=== PATIENT | female | born 1985 | race Caucasian/White ===

== ENCOUNTER → 2017-01-17 | Outpatient (CLI) | payer SELFPAY | LOC: FIMAGING 15:43 | PROVIDERS: ATTEND Advanced Practice Midwife | DX: M79.661 Pain in right lower leg (principal) ==

== ENCOUNTER 2017-12-17 11:02 | Observation (INO) | payer OTHER ==
--- NOTE | 2017-12-16 17:18 | PDGENHP ---
"History and Physical History and Physical: Assessment and Plan: 1. Lateral cystocele Meka has symptomatic stage III pelvic organ prolapse which is predominantly her anterior compartment, as well as a dilated hiatus with a thin, hypermobile perineal body. We again reviewed all conservative and surgical options. She is anxious to return to exercise and other activities without symptoms of her prolapse. She does not wish to use a pessary for the next 60 years potentially. As result she wishes to pursue surgical repair. Given the quality of her tissues as well as her prolapse in all 3 compartments I feel a supracervical hysterectomy, sacral colpopexy, and perineorrhaphy would be the most appropriate repair which would provide a good anatomic result as well as long-term durability. I think she also would benefit from a mid urethral sling procedure. She is going to discuss this with her and will call back to schedule her procedure. 2. Rectocele 3. Stress incontinence Subjective: Patient ID: Meka Cage is a 32 y.o. female who presents to [facility] for prolapse. HPI Meka Cage presents for a preoperative visit. She is scheduled for a robotic assisted hysterectomy, sacrocolpopexy, and possible transobturator sling. The risks, benefits, and alternatives were presented and informed consent was obtained. 40 minutes of this 40 minute appointment was spent counceling, reviewing the procedure in detail, and discussing the preoperative and postoperative instructions. Below is a copy of our prior visit note. Meka is a 32-year-old para 4 woman using vasectomy now for contraception. I last saw her in June 2016 for prolapse. At that time she and her were considering 1 more . She conceived soon after that last visit and had a vaginal delivery in February of this year. Her prolapse became more symptomatic during . [facility] who fitted her with a ring pessary at 20 weeks of . Since her last delivery 5 months ago she continues to remain symptomatic from her prolapse. And her are done with childbearing. She has been using her ring pessary since delivery but finds it uncomfortable and it does not support her prolapse very well. She presents to discuss options. Below is a copy of our visit note from last year. Meka is a new patient. She attended a lecture I gave on pelvic organ prolapse. She is a 31-year-old, para 3 woman. All 3 of her boys were born vaginally. She developed a vaginal bulge during the first trimester of her third . It seemed to improve during the second trimester, but again returned . Now she feels a bulge all of the time. She has undergone pelvic physical therapy with Alysia at [facility]. She finds her symptoms are better in the morning, but they return by around lunchtime. She has urinary frequency and urgency, but no urgency incontinence. She finds that if she squats after urination she can empty more volume. She has no problems with bowel movements. She has rare stress urinary incontinence. She has no problems or pain with intercourse. She is a very active woman. She has been afraid to return to jogging because the bulge is so uncomfortable. She does not want it to worsen. Her largest child weighed 7-1/2 pounds. She was told she did not tear. All 3 were born with a cake winder. She is a [id number] mother and lives in [place]. She and her would like to have one more child. She is hoping to have a girl. PastMedicalHistory No past medical history on file. PastSurgicalHistory Past Surgical History: Procedure Laterality Date WISDOM TOOTH EXTRACTION 2002 CURRENT MEDICATIONS: Current Outpatient Prescriptions Medication Sig pantoprazole (PROTONIX) 40 mg EC tablet Take 40 mg by mouth daily. No current facility-administered medications for this visit. ALLERGIES: Adhesive tape-silicones I have reviewed, verified and agree with the past medical, surgical, , family, social and ROS history as documented by the RN today. Review of Systems Objective: Vital Signs: BP 100/62 | Pulse 83 | Temp 36.1 C (96.9 F) (Temporal Artery) | Resp 16 | Ht 1.524 m (5') | Wt 49 kg (108 lb) | SpO2 99% | BMI 21.09 kg/m Physical Exam Gen: This is an alert, well developed woman in no distress. Neuro: She moves all extremities. Psych: She is appropriate, oriented, with normal affect. Neck: No thyroid enlargement, adenopathy, or tenderness. Lungs: Clear to ascultation, no wheezes or rales. Heart: Regular rate and rhythm without obvious murmurs. Abdomen: Soft, non-tender, without guarding, rebound, or masses. Extremities: No edema or cyanosis. Pelvic: Normal external genitalia. Cervix without lesions or discharge. Adnexa non-tender without enlargement. The introitus is gaping, especially posteriorly. She has a scar along the perineal body and posterior vagina from one of her prior deliveries. She has a third-degree cystocele with which is a lateral defect. She has a second degree low rectocele, which is more pronounced given the posterior dilation of the hiatus. The uterus descends to -2. The uterus is very small, mobile, nontender. The perineal body is thin and hypermobile. Anal sphincter tone is normal. The urethra is mobile with leaking during strong coughing. TIME/COMMUNICATION: I personally spent a total of 30 minutes. Of that 20 minutes was counseling/ coordination of patient's care. See my note above for details. Amauri Carmen MD Board Certified Female Pelvic Medicine and Reconstructive Surgery Director of Minimally Invasive Gynecologic Surgery, [facility] Minimally Invasive Gynecologic Surgery Designee"
[2017-12-17] MEDS ORDERED: PHENAZOPYRIDINE HCL 200 MG TAB PO ONE (11:33)
[2017-12-17] MEDS ORDERED: ceFAZolin 2 GM/SWFI 2 GM/20 ML SYR IVP ONE (11:33)
[2017-12-17] MEDS ORDERED: GABAPENTIN 400 MG CAP PO ONE (11:33)
[2017-12-17] MEDS ORDERED: ACETAMINOPHEN 500 MG TAB PO ONE (11:33)
[2017-12-17] MEDS ORDERED: LIDOCAINE 1% 2 ML INJ ID PRN (11:48)
[2017-12-17] MEDS ORDERED: LR 1,000 ML IV ONE (11:48)
[2017-12-17] MEDS ORDERED: BUPIVACAINE/EPI 0.5% 30 ML SDV ONE (12:40)
--- NOTE | 2017-12-17 12:58 | PDHPUP ---
History & Physical Update H&P update statement: This history and physical update is based on an assessment of the patient which was completed after admission or registration (within 24 hours), but prior to the surgery/procedure. H&P update: H&P reviewed & patient examined, no change in patient's condition since H&P completed
[2017-12-17] MEDS ORDERED: MIDAZOLAM 2 MG/2 ML VIAL IVP ONE (13:03)
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
[2017-12-17] MEDS ORDERED: MIDAZOLAM 2 MG/2 ML VIAL ONE (13:04)
[2017-12-17] MEDS ORDERED: DEXAMETHASONE 4 MG/ML VIAL ONE (13:07)
[2017-12-17] MEDS ORDERED: KETOROLAC 30 MG/1 ML SDV ONE ×2 (13:07→16:54)
[2017-12-17] MEDS ORDERED: SUGAMMADEX SODIUM 200 MG/2 ML VIAL IVP ONE (13:07)
[2017-12-17] MEDS ORDERED: fentaNYL 250 MCG/5 ML INJ ONE (13:07)
[2017-12-17] MEDS ORDERED: ONDANSETRON 4 MG/2 ML VIAL ONE (13:07)
[2017-12-17] MEDS ORDERED: ROCURONIUM 50 MG/5 ML VIAL ONE ×2 (13:07→13:08)
[2017-12-17] MEDS ORDERED: PROPOFOL 200 MG/20 ML VIAL ONE (13:07)
[2017-12-17] MEDS ORDERED: LIDOCAINE 2% 5 ML SDV ONE (13:09)
[2017-12-17] MEDS ORDERED: fentaNYL 100 MCG/2 ML INJ ONE ×2 (14:07→15:58)
[2017-12-17] MEDS ORDERED: ALBUTEROL 3 ML DEYVIAL IH PRN (14:54)
[2017-12-17] MEDS ORDERED: OXYCODONE/APAP 5/325 TAB PO PRN (14:54)
[2017-12-17] MEDS ORDERED: METOCLOPRAMIDE 10 MG/2 ML VIAL IVP PRN (14:54)
[2017-12-17] MEDS ORDERED: PROMETHAZINE HCL 25 MG/ML INJ IVP PRN (14:54)
[2017-12-17] MEDS ORDERED: NALOXONE HCL 0.4 MG/ML INJ IVP PRN (14:54)
[2017-12-17] MEDS ORDERED: ONDANSETRON 4 MG/2 ML VIAL IVP PRN ×2 (14:54→15:52)
[2017-12-17] MEDS ORDERED: LR 500 ML IV PRN (14:54)
[2017-12-17] MEDS ORDERED: ACETAMINOPHEN 500 MG TAB PO PRN (14:54)
--- NOTE | 2017-12-17 14:54 | POSTANESTH ---
Post Anesthetic Evaluation Cardiovascular Status: Normal, Stable Respiratory Status: Normal, Stable Level of Consciousness/Mental Status: Can Participate in Eval Pain Control: Adequate, Prn Tx Ordered Nausea/Vomiting Control: Adequate, Prn Tx Ordered Complications Possibly Related to Anesthesia: None Noted
--- NOTE | 2017-12-17 15:56 | POSTOPPROG ---
Post Op Note Date of Operation: 12/17/17 Surgeon: Amauri Carmen Supply Officer: Mee cano Anesthesia: GET(General Endotracheal) Pre-op Diagnosis: uterovaginal prolapse Post-op Diagnosis: same Procedure: robotic hyst, sacrocolpopexy, retropubic sling, cysto Findings: uireters function at end of case Inf/Abcess present in the surg proc area at time of surgery?: No EBL: Minimal Complications: None Specimen(s): uterus and tubes
[2017-12-17] MEDS ORDERED: HYDROmorphONE/DILAUDID 1 MG/ML INJ ONE (15:58)
[2017-12-17] MEDS: fentaNYL 100 MCG/2 ML INJ IVP PRN ×2 (16:00→16:11)
[2017-12-17] MEDS ORDERED: LR 1,000 ML IV SCH (16:00)
[2017-12-17] MEDS: HYDROmorphONE/DILAUDID 1 MG/ML INJ IVP PRN ×2 (16:03→16:13)
[2017-12-17] MEDS ORDERED: OPIUM/BELLADONNA ALKALO SUPP PR ONE (16:24)
[2017-12-17] MEDS: OPIUM/BELLADONNA ALKALO SUPP PR PRN ×2 (16:25→23:33)
[2017-12-17] MEDS: KETOROLAC 30 MG/1 ML SDV IVP SCH ×2 (16:55→22:35)
[2017-12-17] MEDS ORDERED: DIAZEPAM 10 MG/2 ML SYR ONE (17:29)
[2017-12-17] MEDS ORDERED: DIAZEPAM 10 MG/2 ML SYR IVP ONE (17:30)
[2017-12-18] MEDS: OXYCODONE/APAP 5/325 TAB PO PRN ×4 (04:58→17:39)
--- NOTE | 2017-12-18 05:00 | GOP ---
[f rep st] OPERATIVE REPORT DATE OF OPERATION: SURGEON: Amauri Carmen MD ENGINEER SOILS: Mee Hunt CFA. ANESTHESIA: General. PREOPERATIVE DIAGNOSIS: 1. Symptomatic uterovaginal prolapse. 2. Stress urinary incontinence. POSTOPERATIVE DIAGNOSIS: 1. Symptomatic uterovaginal prolapse. 2. Stress urinary incontinence. PROCEDURE PERFORMED: 1. Robotic-assisted laparoscopic hysterectomy, bilateral salpingectomy. 2. Sacral cervicopexy with mesh. 3. Repair of cystocele and rectocele. 4. Retropubic sling. 5. Perineoplasty. 6. Cystoscopy. FINDINGS: SPECIMENS: Uterus, bilateral tubes. ESTIMATED BLOOD LOSS: Scant. DESCRIPTION OF PROCEDURE: The patient was taken to the operating room where she was identified. Gen eral anesthesia was administered and found to be adequate. She was placed in the lithotomy position and prepared and draped in normal sterile fashion. A Verma catheter was placed in her bladder. A 1 cm intraumbilical incision was made with a scalpel. The Veress needle with the CO2 gas flowing w as advanced into the peritoneal cavity. The abdomen was then insufflated with carbon dioxide gas wit h a 12 mm trocar, followed by the laparoscope was then inserted. The upper abdomen revealed a somewh at enlarged right lateral lobe of the liver with a lesion which visually appeared to be a hemangioma. This coincided with her tenderness and the palpable mass she noted in the preoperative area. Photo graphs were taken. Two lateral ports were then placed on either side under direct visualization. Sh e then was placed in Trendelenburg position and the da Inderjit robot docked on the left side. The inst ruments were then brought into the abdominal cavity under direct visualization. The left fallopian tube was along the mesosalpinx. The utero-ovarian ligament, followed by the round ligament were then cauterized and transected. The anterior leaf of the broad ligament was then incised over the left uterine vessels and across the cervix. The bladder was gently dissected off the cervix and upper vagina. The left uterine vasculature was then cauterized and transected. T he exact same procedure was performed on the patient's right side. The uterus was then bivalved to a id in removal of the umbilicus. The uterus and upper 2/3 of the cervix were amputated from the lower third of the cervix with the hot lucy. The specimen was placed in the right upper quadrant for la ter removal. The Colpo-Probe was placed in the vagina. The bladder was further dissected off the anterior vaginal wall down to the level of the bladder neck. The rectovaginal space was then entered and the rectum dissected off the posterior vaginal wall down to the level of the perineal body. Measurements were t hen obtained and the mesh trimmed to size. The peritoneum over the sacral promontory was incised. T he fat pad was gently dissected off the anterior longitudinal ligament. The cervical stump was then closed with a [id number] suture of 0 Monocryl. The mesh was brought into the abdominal cavity. Three sutures of 4-0 Redfield-Adan were used to attach the distal posterior mesh to the perineal body. T wo additional rows of Redfield-Adan sutures were placed posteriorly. Three rows were placed anteriorly to suture the mesh down to the bladder neck and laterally to the paravaginal tissue. The Colpo-Probe w as then removed. The sacral arm of the mesh was placed over the promontory and the tension adjusted to resolve the cystocele and rectocele without undue tension on the vagina. Three sutures of 2-0 Gor e-Adan were used to attach the sacral arm of the mesh to the anterior longitudinal ligament at the lev el of the upper first sacral vertebral body below the intervertebral disk space. The excess mesh was then trimmed. The peritoneum was then closed over the entire mesh. The robot was then undocked. T he specimen removed through the umbilicus. The fascia was closed with 0 Vicryl, skin with 4-0 Monocr yl and surgical adhesive. A mid urethral incision was made with a scalpel. Tunnels were created around the urethra bilaterally toward the space of Retzius. The retropubic trocar was placed through the left tunnel, redirected a round the symphysis pubis and out through a suprapubic stab incision. The sling had been attached. The exact same procedure was performed on the patient's right side. Cystoscopy was then performed. Both ureters had vigorous jets of urine. There was no evidence of bladder injury seen. No mesh nor suture was seen within the bladder nor urethra. No obvious pathology was seen. The sling was then a djusted to allow a small mid urethral gap. The vaginal epithelium was closed with 0 Vicryl, skin wit h 4-0 Monocryl. A transverse incision was then made along the perineal body. The posterior vaginal epithelium was un dermined with the Metzenbaum scissors and incised sagittally. The epithelium was then gently dissect ed off the underlying rectovaginal connective tissue. The connective tissue was plicated with interr upted sutures of 0 Vicryl. The transverse perineal and bulbous spongiosis muscles were plicated also with 0 Vicryl. The excess epithelium was then trimmed and closed with a running 0 Vicryl suture. V aginal packing was then placed. Anesthesia was reversed. The patient was taken the PACU awake, in s table condition. COMPLICATIONS: None. DISPOSITION: Patient stable to PACU. /[id number]/MODL
[2017-12-18] MEDS: KETOROLAC 30 MG/1 ML SDV IVP SCH ×2 (05:25→12:19)
[2017-12-18] MEDS ORDERED: LIDOCAINE 2% JELLY 5 ML TUBE ONE (12:44)
[2017-12-18] MEDS ORDERED: LIDOCAINE 2% JELLY 20 ML (UROJECT) UR ONE (12:45)
[2017-12-18] MEDS: OPIUM/BELLADONNA ALKALO SUPP PR PRN (13:45)
[2017-12-18] MEDS ORDERED: DOCUSATE SODIUM 100 MG CAP PO SCH (17:45)
[2017-12-18 18:01] VITALS: BP 116/71; PULSE 88; RESP 16; O2SAT 97
[2017-12-18 18:59] VITALS: TEMP 98.4
--- NOTE | 2017-12-19 15:16 | GDS ---
[f rep st] DISCHARGE SUMMARY DISCHARGE DIAGNOSIS: 1. Menorrhagia. 2. Uterovaginal prolapse. 3. Stress urinary incontinence. PROCEDURES: 1. Robotic-assisted laparoscopic hysterectomy, bilateral salpingectomy. 2. Robotic-assisted laparoscopic sacral cervicopexy with mesh. 3. Repair of cystocele and rectocele. 4. Retropubic sling. 5. Cystoscopy. HISTORY: The patient is a 32-year-old female with heavy menses as well as uterovaginal prolapse and stress incontinence. She was taken to the operating room on 12/17/2017, where she underwent the abov e-mentioned procedures without complications. Her postoperative course was uneventful. The morning after surgery, she was ambulating, voiding, and tolerating a general diet. However, her postvoid residuals were moderately elevated. As a result, a Verma catheter was replaced and she was discharged home with it, to undergo a bladder trial in the office. Medications included Percocet and ibuprofen for pain. She is to follow up in the office the Friday after discharge. /[id number]/MODL
== END 2017-12-18 20:24 | disposition home or self-care (01) ==
LOC: F3E 11:02 → FOB 18:42
PROVIDERS: ADMIT Obstetrics & Gynecology; ATTEND Obstetrics & Gynecology
PROC: 0UT94ZZ Resection of Uterus, Percutaneous Endoscopic Approach (ICD-10-PCS; principal; 2017-12-17 13:00)
PROC: 0JQC0ZZ Repair Pelvic Region Subcutaneous Tissue and Fascia, Open Approach (ICD-10-PCS; principal; 2017-12-17 13:00)
PROC: 0WQNXZZ Repair Female Perineum, External Approach (ICD-10-PCS; principal; 2017-12-17 13:00)
PROC: 0UT74ZZ Resection of Bilateral Fallopian Tubes, Percutaneous Endoscopic Approach (ICD-10-PCS; principal; 2017-12-17 13:00)
DX: N92.0 Excessive and frequent menstruation with regular cycle (principal); N81.4 Uterovaginal prolapse, unspecified; N39.3 Stress incontinence (female) (male)
CPT/HCPCS: 45560; 56810; 57285; 58571; 99241; G0378; C1763; C1771; G0463; J0690; J1100; J1170; J1885; J2250; J2405; J2704; J3010